=== PATIENT | female | born 1975 | race Caucasian/White ===

== ENCOUNTER 2018-11-06 13:20 | Emergency (ER) | payer MEDICARE ==
[~2018-11-06] VITALS: Ht 172.7 cm; Wt 81.6 kg
[2018-11-06 13:25] VITALS: BP 133/63
[2018-11-06] MEDS ORDERED: KETOROLAC 30 MG/ML VIAL. IM ONE (14:00)
--- NOTE | 2018-11-06 14:20 | PHYS DOC ---
Past Medical History Past Medical History: Asthma, Other Additional Past Medical Histor: hearing impaired (MARIVEL RAMÍREZ APRN) Past Surgical History: Appendectomy, Cholecystectomy (MARIVEL RAMÍREZ APRN) Additional Information: nonsmoker Alcohol Use: None Drug Use: None (MARIVEL RAMÍREZ APRN) Adult General Chief Complaint Chief Complaint: ANIMAL BITE [facility] HPI Patient is a 43 year old female who presents with an animal bite to her left hand. Bite happened an hour prior to arrival. Patient is updated on her tetanus shot. No treatment prior to arrival. Unknown vaccinations status of dog. 04/06 pain and throbbing. (MARIVEL RAMÍREZ APRN) Review of Systems Review of Systems Constitutional: Denies fever or chills [] Eyes: Denies change in visual acuity, redness, or eye pain [] HENT: Denies nasal congestion or sore throat [] Respiratory: Denies cough or shortness of breath [] Cardiovascular: No additional information not addressed in HPI [] GI: Denies abdominal pain, nausea, vomiting, bloody stools or diarrhea [] : Denies dysuria or hematuria [] Musculoskeletal: Denies back pain but reports having difficulty flexing her fingers. Integument: Denies rash or skin lesions but has laceration to the lateral side of left wrist. Neurologic: Denies headache, focal weakness or sensory changes [] Endocrine: Denies polyuria or polydipsia [] Complete systems were reviewed and found to be within normal limits, except as documented in this note. (MARIVEL RAMÍREZ APRN) Current Medications Current Medications Current Medications Medications (Trade) Dose Ordered Sig/Tacos Start Time Stop Time Status Last Admin Dose Admin Ketorolac Tromethamine (Toradol 30mg Vial) 30 mg 1X ONCE 11/06/18 14:00 11/06/18 14:01 DC 11/06/18 14:07 30 MG Lidocaine/ Epinephrine (LIDOCAINE 1%-EPI 1:100,000 Multi-Dose) 20 ml 1X ONCE 11/06/18 14:30 11/06/18 14:31 DC 11/06/18 14:00 20 ML Neomycin/ Polymyxin/ Bacitracin (Triple Antibiotic Ointment) 1 pkt 1X ONCE 11/06/18 15:00 11/06/18 15:01 DC 11/06/18 15:00 1 PKT (MARIVEL JONES DO) Allergies Allergies Allergies Coded Allergies Type Severity Reaction Last Updated Verified tramadol Allergy Intermediate 11/06/18 No (MARIVEL JONES DO) Physical Exam Physical Exam Constitutional: Well developed, well nourished, no acute distress, non-toxic appearance. [] HENT: Normocephalic, atraumatic, bilateral external ears normal, oropharynx moist, no oral exudates, nose normal. [] Eyes: PERRLA, EOMI, conjunctiva normal, no discharge. [] Neck: Normal range of motion, no tenderness, supple, no stridor. [] Cardiovascular:Heart rate regular rhythm, no murmur [] Lungs & Thorax: Bilateral breath sounds clear to auscultation [] Abdomen: Bowel sounds normal, soft, no tenderness, no masses, no pulsatile masses. [] Skin: Warm, dry, no erythema, no rash, laceration to the left lateral wrist approximately 0.5 cm. Extremities: No tenderness, no cyanosis, no clubbing, ROM intact, edema to her hand. Having difficulty flexing fingers due to edema in hand. extension tendon intact. Neurologic: Alert and oriented X 3, normal motor function, normal sensory function, no focal deficits noted. [] Psychologic: Affect normal, judgement normal, mood normal. [] (MARIVEL RAMÍREZ APRN) Physical Exam Skin: Laceration to the left dorsal proximal hand approximately 1.5 cm with gapping no active bleeding noted, Surrounding ecchymosis with moderate swelling Extremities: Patient with pain on flexion of finger due to hematoma and pain, full extension noted therefore does not appear to involve extensor tendon rupture (MARIVEL JONES DO) Current Patient Data Vital Signs Vital Signs Date Time Temp Pulse Resp B/P (MAP) Pulse Ox O2 Delivery O2 Flow Rate FiO2 11/06/18 13:25 98.6 68 19 133/63 (86) 99 Room Air 98.6 (MARIVEL JONES DO) EKG EKG [] (MARIVEL RAMÍREZ APRN) Radiology/Procedures Radiology/Procedures Indication: Animal Bite Procedure: The patient was placed in the appropriate position and anesthesia around the lidocaine 1% with epi. The area was then cleansed with 250 mL of saline and washed with iodine. The laceration was loosely closed with 1 5-0 Ethilon suture. The wound area was then dressed with dressing and neosporin Total repaired wound length: 0.5 cm The patient tolerated the procedure. Complications: No complications PATIENT: ANGELA CRAIG ACCOUNT: [id number] : 1975 LOCATION: ER AGE: 43 SEX: F EXAM STATUS: REG ER ORD. PHYSICIAN: MARIVEL RAMÍREZ APRN REASON: dog bite PROCEDURE: HAND LEFT 3V Three-view left hand and wrist radiographs 11/06/2018 CLINICAL HISTORY: Dog bite to the left hand and wrist. PA, lateral and oblique digital radiographs of the left hand and wrist were obtained. No fracture or dislocation of the left hand is seen. No fracture or dislocation of the left wrist is noted. Subcutaneous emphysema is seen near the left thumb consistent with the patient's history of a dog bite. No radiopaque foreign body is seen. IMPRESSION: Soft tissue injury. No fracture or radiopaque foreign body is seen. Electronically signed by: Payam Dan MD (11/06/2018 2:38 PM) [facility] (MARIVEL RAMÍREZ APRN) Course & Med Decision Making Course & Med Decision Making Pertinent Labs and Imaging studies reviewed. (See chart for details) Will x-ray and give pain medication. Will also put one loose stitch to approximate wound and d/c on Augmentin. Will irrigate the wound while doing procedure. Will d/c with augmentin and to follow up. (MARIVEL RAMÍREZ APRN) Dragon Disclaimer Dragon Disclaimer This electronic medical record was generated, in whole or in part, using a voice recognition dictation system. (MARIVEL RAMÍREZ APRN) Splinting Splinting : Location: Left hand Hand-Made Type: orthoglass Splint: volar Pre-Proc Neuro Vasc Exam: normal Post-Proc Neuro Vasc Exam: normal, unchanged from pre-exam (MARIVEL JONES DO) Departure Departure Impression: Primary Impression: Animal bite Disposition: 01 HOME, SELF-CARE Condition: STABLE Referrals: UNKNOWN PCP NAME (PCP) Patient Instructions: Animal Bite Additional Instructions: Please watch for signs of infection. Take antibiotic as directed. Come back if any issues. Have suture removed in 7 days. Scripts Amoxicillin/Potassium Clav (AUGMENTIN 875-125 TABLET) 1 Each Tablet 1 TAB PO BID for 7 Days, #14 TAB Prov: MARIVEL RAMÍREZ APRN 11/06/18 Attending Signature Attending Signature I have personally interviewed and examined the patient. All charts, labs, and imaging studies were reviewed. I agree with the PA/NITROCELLULOSE MAKER's findings, exam, and plan. Given gapping of wound, decision to loosely approximate with 1 suture after empiric antibiotics and copious irrigation. (MARIVEL JONES DO) MARIVEL RAMÍREZ APRN November 06, 2018 14:20 MARIVEL JONES DO November 08, 2018 01:21
[2018-11-06] MEDS ORDERED: LIDOCAINE 1%/EPI 1:100,000 20 ML VIAL. INJ ONE (14:30)
--- NOTE | 2018-11-06 14:41 | RAD ---
Three-view left hand and wrist radiographs 11/06/2018 CLINICAL HISTORY: Dog bite to the left hand and wrist. PA, lateral and oblique digital radiographs of the left hand and wrist were obtained. No fracture or dislocation of the left hand is seen. No fracture or dislocation of the left wrist is noted. Subcutaneous emphysema is seen near the left thumb consistent with the patient's history of a dog bite. No radiopaque foreign body is seen. IMPRESSION: Soft tissue injury. No fracture or radiopaque foreign body is seen. Electronically signed by: Payam Dan MD (11/06/2018 2:38 PM) [facility]
--- NOTE | 2018-11-06 14:41 | RAD ---
Three-view left hand and wrist radiographs 11/06/2018 CLINICAL HISTORY: Dog bite to the left hand and wrist. PA, lateral and oblique digital radiographs of the left hand and wrist were obtained. No fracture or dislocation of the left hand is seen. No fracture or dislocation of the left wrist is noted. Subcutaneous emphysema is seen near the left thumb consistent with the patient's history of a dog bite. No radiopaque foreign body is seen. IMPRESSION: Soft tissue injury. No fracture or radiopaque foreign body is seen. Electronically signed by: Payam Dan MD (11/06/2018 2:38 PM) [facility]
[2018-11-06] MEDS ORDERED: AMOX1TAB61 PO (14:50)
[2018-11-06] MEDS ORDERED: NEOMY/BACITR/POLYMYXIN OINT PACKET. TP ONE (15:00)
== END 2018-11-06 15:05 | disposition home or self-care (01) ==
LOC: ER 13:20
DX: S61.412A Laceration without foreign body of left hand, initial encounter (principal); S61.512A Laceration without foreign body of left wrist, initial encounter; J45.909 Unspecified asthma, uncomplicated; Z88.6 Allergy status to analgesic agent; W54.0XXA Bitten by dog, initial encounter; Y93.89 Activity, other specified; Y92.89 Other specified places as the place of occurrence of the external cause; Y99.8 Other external cause status
CPT/HCPCS: 12001; 73110; 73130; 96372; 99284; J1885; J3490